=== PATIENT | female | born 1990 | race Two or more races ===

== ENCOUNTER 2017-02-21 16:52 | Emergency (ER) | payer OTHER ==
[~2017-02-21] VITALS: Ht 160 cm; Wt 63.5 kg
[~2017-02-21 16:52] MED LIST: BLEPH-105 ML OPTH; PRENATA CHEWAB1 EACH PO; TUMS200 MG PO; XULANE PATCH1 EACH TD
== END 2017-02-21 23:08 | disposition home or self-care (01) ==
LOC: ED 16:52
DX: S09.90XA Unspecified injury of head, initial encounter (principal); W50.0XXA Accidental hit or strike by another person, initial encounter
CPT/HCPCS: 99282

== ENCOUNTER 2022-01-01 15:50 | Emergency (ER) | payer OTHER ==
[~2022-01-01] VITALS: Ht 160 cm; Wt 76.7 kg
[2022-01-01] MEDS ORDERED: ONDANSETRON ODT8 MG PO (21:36)
[2022-01-01] MEDS ORDERED: PROTONIX40 MG PO (21:36)
== END 2022-01-01 21:42 | disposition home or self-care (01) ==
LOC: ED 15:50
DX: R10.13 Epigastric pain (principal); R10.11 Right upper quadrant pain
CPT/HCPCS: 36415; 76705; 80053; 81003; 83690; 84703; 85025; 99284-25